=== PATIENT | male | born 1950 | race Caucasian/White ===

== ENCOUNTER 2016-08-17 14:22 | Emergency (ER) | payer MEDICARE, OTHER ==
--- NOTE | 2016-08-17 14:36 | ED.PDOC ---
History of Present Illness - General Stated Complaint: dizzy,tunnel vision,headache Time Seen by Provider: 08/17/16 14:36 Source: patient Exam Limitations: no limitations - History of Present Illness Initial Comments: Rowdy Knight 65 y/o male with history of brain and pancreatic aneurysm stated while he was standing outside his shop today he became dizzy with tunnel vision felt nauseated feels like he was spinning around then had dull generalized headache which gradually went away on its own.Denies tinnitus hearing loss ,slurred speech,or weakness.He also stated that he had to kneel down to keep himself from falling. Timing/Duration: 1-3 hours Severity: moderate Improving Factors: rest Worsening Factors: nothing Associated Symptoms: denies symptoms Allergies/Adverse Reactions: Allergies NO KNOWN ALLERGY Allergy (Verified 12/09/15 19:09) Home Medications: Ambulatory Orders Metoprolol Tartrate 50 mg PO BID 12/19/14 Trazodone HCl 100 mg PO BEDTIME 12/19/14 amLODIPine BESYLATE [Norvasc] 10 mg PO DAILY 05/09/15 Clopidogrel Bisulfate [Plavix] 75 mg PO QD 08/17/16 Duloxetine HCl [Cymbalta] 60 mg PO DAILY 08/17/16 Meclizine HCl [Meclizine 25] 50 mg PO Q8HRS PRN #30 tab 08/17/16 Review of Systems - Review of Systems Constitutional: States: no symptoms reported EENTM: States: no symptoms reported Respiratory: States: no symptoms reported Cardiology: States: no symptoms reported Gastrointestinal/Abdominal: States: no symptoms reported Genitourinary: States: no symptoms reported Musculoskeletal: States: no symptoms reported Neurological: States: see HPI Endocrine: States: no symptoms reported Hematologic/Lymphatic: States: no symptoms reported Past Medical History (General) - Patient Medical History Hx Seizures: No - 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 Hx Stroke: No - brain aneurysms, clipped Hx Dementia: No Hx Asthma: No - always short of breath Hx of COPD: No Hx Cardiac Disorders: Yes Hx Congestive Heart Failure: No Hx Pacemaker: No Hx Hypertension: Yes Hx Thyroid Disease: No Hx Diabetes: No Hx Gastroesophageal Reflux: Yes Hx Renal Disease: No Hx Cancer: No Hx Hepatitis C: No Hx MRSA: No Hx Other PMH: Yes - brain aneurysm,pancreatic aneurysm,dvt,pe Surgical History: appendectomy, cholecystectomy, other - coiling of brain, pancreatic aneurysm-[facility] 2014,removal of ivc filter - Vaccination History Hx Tetanus, Diphtheria Vaccination: Yes Hx Influenza Vaccination: No Hx Pneumococcal Vaccination: No - Social History Hx Tobacco Use: No Hx Chewing Tobacco Use: Yes - october 2014 Hx Alcohol Use: Yes - 35 yrs ago Hx Substance Use: No Hx Substance Use Treatment: No Hx Depression: No Hx Physical Abuse: No Hx Emotional Abuse: No - Female History Patient : No Family Medical History - Family History Father Living Status: Hx Family Hypertension: Yes Hx Cardiac Disease: Yes Hx Family Cancer: Yes - stomach Mother Living Status: Hx Family Hypertension: Yes Hx Family;Other: Alzheimer's disease Physical Exam - Physical Exam General Appearance: Alert, No apparent distress, Other - speech fluent Eye Exam: bilateral normal Ears, Nose, Throat: hearing grossly normal, normal ENT inspection, normal pharynx Neck: non-tender, full range of motion, supple, normal inspection Respiratory: chest non-tender, lungs clear, normal breath sounds Cardiovascular/Chest: normal peripheral pulses, regular rate, rhythm, no gallop , no murmur Peripheral Pulses: radial,right: 2+, radial,left: 2+ Gastrointestinal/Abdominal: normal bowel sounds, non tender, soft, no organomegaly, no pulsatile mass Back Exam: normal inspection, no CVA tenderness, no vertebral tenderness Extremity: normal range of motion, non-tender, normal inspection, no pedal edema Neurologic: no motor/sensory deficits, alert, normal mood/affect, oriented x 3 Skin Exam: normal color, warm/dry Lymphatic: no adenopathy Progress - EKG/XRAY/CT EKG: Sinus, nonspecific ST T wave Chg - lead 3 XRAY: chest - no acute abnormalities noted CT Ordered: Yes - head w/o contrast no acute findings Departure - Departure Clinical Impression: Dizziness, Headache syndrome Time of Disposition: 16:52 Disposition: Discharge to Home or Self Care Condition: Good Instructions: DI for Dizziness-Nonvertigo, Combating Dizziness in Older Adults Prescriptions: Meclizine HCl [Meclizine 25] 50 mg PO Q8HRS PRN #30 tab PRN Reason: Dizziness Home Medications: Ambulatory Orders Metoprolol Tartrate 50 mg PO BID 12/19/14 Trazodone HCl 100 mg PO BEDTIME 12/19/14 amLODIPine BESYLATE [Norvasc] 10 mg PO DAILY 05/09/15 Clopidogrel Bisulfate [Plavix] 75 mg PO QD 08/17/16 Duloxetine HCl [Cymbalta] 60 mg PO DAILY 08/17/16 Meclizine HCl [Meclizine 25] 50 mg PO Q8HRS PRN #30 tab 08/17/16 Additional Instructions: RETURN TO EMERGENCY ROOM NEEDED
[2016-08-17 14:42] VITALS: TEMP 96.9
--- NOTE | 2016-08-17 15:27 | RAD ---
Portable chest INDICATION: Chest pain IMPRESSION: Normal heart size for technique. No florid failure. No confluent infiltrate. No large effusion or pneumothorax. No acute process Electronically signed by: Bernardo Lowry MD 08/17/2016 3:25 PM ASSOCIATE FINANCIAL PLANNER
[2016-08-17] MEDS ORDERED: SODIUM CHLORIDE 0.9% 1000ML 1,000 ML IVS ONE (15:43)
--- NOTE | 2016-08-17 15:54 | CT ---
EXAM DESCRIPTION: Head CLINICAL HISTORY: headache COMPARISON: February 02, 2016 TECHNIQUE: Multiple axial images of the head without contrast FINDINGS: There is no CT evidence of intracranial hemorrhage, mass effect, or acute cortical infarction. Minimal encephalomalacia superjacent to the right ICA aneurysm clip within the region of the caudate head. The brain parenchyma is otherwise unremarkable. The ventricles are normal. There are no abnormal extra-axial fluid collections. Vascular structures are unremarkable. Right frontoparietal craniotomy noted. Aneurysm clips seen about the ophthalmic segment of right internal carotid artery. The visualized paranasal sinuses and the mastoids are clear. IMPRESSION: 1. No acute findings on today's study. 2. Right internal carotid artery aneurysm clip is noted. Electronically signed by: Loyd Palacios MD 08/17/2016 3:53 PM ASSISTANT PRODUCT MANAGER
[2016-08-17 17:12] VITALS: BP 148/100; O2SAT 93
--- NOTE | 2016-08-21 00:47 | RAD ---
Portable chest INDICATION: Chest pain IMPRESSION: Normal heart size for technique. No florid failure. No confluent infiltrate. No large effusion or pneumothorax. No acute process Electronically signed by: Bernardo Lowry MD 08/17/2016 3:25 PM COLD ROLL CATCHER
== END 2016-08-17 17:12 | disposition home or self-care (01) ==
LOC: ER 14:22
DX: R42 Dizziness and giddiness (principal); R51 Headache; I10 Essential (primary) hypertension; K21.9 Gastro-esophageal reflux disease without esophagitis; Z79.899 Other long term (current) drug therapy; Z86.718 Personal history of other venous thrombosis and embolism; Z86.711 Personal history of pulmonary embolism; Z87.19 Personal history of other diseases of the digestive system; Z86.79 Personal history of other diseases of the circulatory system; Z79.02 Long term (current) use of antithrombotics/antiplatelets
CPT/HCPCS: 36415; 70450; 71010; 80048; 80076; 82310; 82550; 82553; 83735; 84484; 85025; 85379; 85610; 85730; 93005; J7030

== ENCOUNTER → 2017-01-26 | Outpatient (CLI) | payer MEDICARE, OTHER | END | disposition home or self-care (01) | LOC: LAB.O 07:48 | DX: E27.49 Other adrenocortical insufficiency (principal) ==

== ENCOUNTER → 2017-02-05 | Outpatient (CLI) | payer MEDICARE, OTHER | END | disposition home or self-care (01) | LOC: GMAB 10:14 | PROVIDERS: ATTEND Family Medicine | DX: R06.00 Dyspnea, unspecified (principal); Z12.5 Encounter for screening for malignant neoplasm of prostate; I10 Essential (primary) hypertension | CPT/HCPCS: 83880; 84443; G0103 ==

== ENCOUNTER → 2017-02-15 | Outpatient (CLI) | payer MEDICARE, OTHER | END | disposition home or self-care (01) | LOC: LAB.O 08:08 | DX: E27.40 Unspecified adrenocortical insufficiency (principal) ==

== ENCOUNTER 2017-03-01 12:16 | Emergency (ER) | payer MEDICARE, OTHER ==
[2017-03-01 12:33] VITALS: TEMP 97.6
[2017-03-01] MEDS ORDERED: LACTATED RINGERS 1,000 ML IVS ONE (12:41)
--- NOTE | 2017-03-01 12:42 | ED.PDOC ---
History of Present Illness - General Chief Complaint: General Stated Complaint: feels like his head is floating Time Seen by Provider: 03/01/17 12:39 Source: patient Exam Limitations: no limitations - History of Present Illness Initial Comments: Rowdy Knight 66 y/o male stated that he had been feeling lightheaded and getting more somnolent easily the last 4 weeks on ad off today fell asleep easily while sitting in his sofa and his needs to tap his foot also had been having dull headache on top of hi head today which was almost gone on arrival at ER.Stated had repair of brain aneurysm inthe past and had also his ivc filter taken out Timing/Duration: other - 4 weeks Severity: moderate Improving Factors: nothing Worsening Factors: nothing Associated Symptoms: other - see hpi Allergies/Adverse Reactions: Allergies NO KNOWN ALLERGY Allergy (Verified 12/09/15 19:09) Home Medications: Ambulatory Orders RX: Metoprolol Tartrate 50 mg PO BID 12/19/14 RX: Trazodone HCl 100 mg PO BEDTIME 12/19/14 amLODIPine BESYLATE [Norvasc] 10 mg PO DAILY 05/09/15 ALPRAZolam [Xanax] 0.25 mg PO DAILY 08/17/16 Clopidogrel Bisulfate [Plavix] 75 mg PO QD 08/17/16 Duloxetine HCl [Cymbalta] 60 mg PO DAILY 08/17/16 Meclizine HCl [Meclizine 25] 50 mg PO Q8HRS PRN #30 tab 08/17/16 RX: Prednisone 5 mg PO DAILY 08/17/16 Review of Systems - Review of Systems Constitutional: States: other - weight gain EENTM: States: no symptoms reported Respiratory: States: no symptoms reported Cardiology: States: no symptoms reported Gastrointestinal/Abdominal: States: no symptoms reported Genitourinary: States: no symptoms reported Musculoskeletal: States: no symptoms reported Skin: States: no symptoms reported Neurological: States: no symptoms reported Endocrine: States: other - hx of adrenal insufficiency-result of brain surgery in the past Past Medical History (General) - Patient Medical History Hx Seizures: No - 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 Hx Stroke: No - brain aneurysms, clipped Hx Dementia: No Hx Asthma: No - always short of breath Hx of COPD: Yes Hx Cardiac Disorders: Yes Hx Congestive Heart Failure: No Hx Pacemaker: No Hx Hypertension: Yes Hx Thyroid Disease: No Hx Diabetes: Yes Hx Gastroesophageal Reflux: Yes Hx Renal Disease: No Hx Cancer: No Hx Hepatitis C: No Hx MRSA: No Hx Other PMH: Yes - adrenal insufficiency ,LAWANDA ,post op-PE/DVT Surgical History: appendectomy, cholecystectomy, other - 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,craniotomy - Vaccination History Hx Tetanus, Diphtheria Vaccination: Yes Hx Influenza Vaccination: No Hx Pneumococcal Vaccination: No - Social History Hx Tobacco Use: No Hx Chewing Tobacco Use: Yes Hx Alcohol Use: Yes - 35 yrs ago Hx Substance Use: No Hx Substance Use Treatment: No Hx Depression: No Hx Physical Abuse: No Hx Emotional Abuse: No - Activities of Daily Living Grooming Ability: Independent Eating (Feeding) Ability: Independent Toileting Ability: Independent - Female History Patient : No Family Medical History - Family History Father Living Status: Hx Family Hypertension: Yes Hx Cardiac Disease: Yes Hx Family Diabetes: Yes Hx Family Cancer: Yes - stomach Mother Living Status: Hx Family Hypertension: Yes Hx Family;Other: Alzheimer's disease Physical Exam - Physical Exam General Appearance: Alert, No apparent distress, Other - speech fluent Eye Exam: bilateral normal Ears, Nose, Throat: hearing grossly normal, normal ENT inspection Neck: full range of motion, supple Respiratory: lungs clear, normal breath sounds Cardiovascular/Chest: normal peripheral pulses, regular rate, rhythm, no murmur Peripheral Pulses: radial,right: 1+, radial,left: 1+ Gastrointestinal/Abdominal: normal bowel sounds, non tender, soft, no organomegaly Back Exam: normal inspection, no CVA tenderness, no vertebral tenderness Extremity: non-tender, normal inspection, no pedal edema, no calf tenderness Neurologic: no motor/sensory deficits, alert, normal mood/affect, oriented x 3 Skin Exam: normal color, warm/dry Lymphatic: no adenopathy Progress - Progress Progress: 03/01/17 14:22 Vital Signs - 24 hr 03/01/17 03/01/17 12:28 13:51 Temperature 97.6 F Pulse Rate [ 80 90 Left Brachial] Respiratory 20 Rate Blood Pressure 104/72 140/79 [Left Arm] O2 Sat by Pulse 92 L Oximetry - Results/Orders Results/Orders: Laboratory Tests 03/01/17 03/01/17 03/01/17 12:50 12:50 12:50 WBC 6.0 RBC 4.75 Hgb 14.2 Hct 41.8 L MCV 88.1 MCH 29.9 MCHC 33.9 RDW 13.6 Plt Count 254 MPV 7.6 Absolute Neuts (auto) 3.50 Absolute Lymphs (auto) 1.70 Absolute Monos (auto) 0.50 Absolute Eos (auto) 0.30 Absolute Basos (auto) 0.10 Neutrophils % 58.0 Lymphocytes % 27.9 Monocytes % 8.7 Eosinophils % 4.4 Basophils % 1.0 Sodium 137 Potassium 3.7 Chloride 102 Carbon Dioxide 28 Anion Gap 10.7 L BUN 12 Creatinine 1.12 BUN/Creatinine Ratio 10.7 Random Glucose 151 H Serum Osmolality 276.5 Calcium 8.9 Total Bilirubin 0.7 AST 60 H ALT 63 H Alkaline Phosphatase 50 Troponin I < 0.02 B-Natriuretic Peptide Serum Total Protein 7.4 Albumin 4.1 Globulin 3.3 Albumin/Globulin Ratio 1.2 Urine Color Urine Appearance Urine pH Ur Specific [place] Urine Protein Urine Glucose (UA) Urine Ketones Urine Blood Urine Nitrite Urine Bilirubin Urine Urobilinogen Ur Leukocyte Esterase Urine RBC Urine WBC Ur Epithelial Cells Amorphous Sediment Urine Bacteria Urine Mucus Urine Opiates Screen Urine Barbiturates Ur Phencyclidine Scrn U Amphetamin/Meth Scrn U Benzodiazepines Scrn U Cocaine Metab Screen U Cannabinoids Screen 03/01/17 03/01/17 03/01/17 13:50 13:50 14:20 WBC RBC Hgb Hct MCV MCH MCHC RDW Plt Count MPV Absolute Neuts (auto) Absolute Lymphs (auto) Absolute Monos (auto) Absolute Eos (auto) Absolute Basos (auto) Neutrophils % Lymphocytes % Monocytes % Eosinophils % Basophils % Sodium Potassium Chloride Carbon Dioxide Anion Gap BUN Creatinine BUN/Creatinine Ratio Random Glucose Serum Osmolality Calcium Total Bilirubin AST ALT Alkaline Phosphatase Troponin I B-Natriuretic Peptide 20.1 Serum Total Protein Albumin Globulin Albumin/Globulin Ratio Urine Color Yellow Urine Appearance Clear Urine pH 8.5 H Ur Specific [place] 1.020 Urine Protein 100 H Urine Glucose (UA) Negative Urine Ketones Negative Urine Blood Trace-intact H Urine Nitrite Negative Urine Bilirubin Negative Urine Urobilinogen 0.2 Ur Leukocyte Esterase Negative Urine RBC 0-1 Urine WBC 0-1 Ur Epithelial Cells 1-3 Amorphous Sediment 2+ Urine Bacteria Rare Urine Mucus Small Urine Opiates Screen Negative Urine Barbiturates Negative Ur Phencyclidine Scrn Negative U Amphetamin/Meth Scrn Negative U Benzodiazepines Scrn Positive H U Cocaine Metab Screen Negative U Cannabinoids Screen Negative - EKG/XRAY/CT EKG: Sinus, no ST T wave changes Comments: heart rate 66 XRAY: chest - no acute findings CT Ordered: Yes - head -no hemmorrhage or infarct Departure - Departure Clinical Impression: Lightheadedness, Excessive somnolence disorder Headache Qualifiers: Headache type: unspecified Headache chronicity pattern: unspecified pattern Intractability: not intractable Qualified Code(s): R51 - Headache Time of Disposition: 15:13 Disposition: Discharge to Home or Self Care Departure Forms: ED Discharge - Pt. Copy, Patient Portal Self Enrollment Referrals: Josué Gutierrez MD [Primary Care Provider] - 1-2 Weeks Home Medications: Ambulatory Orders RX: Metoprolol Tartrate 50 mg PO BID 12/19/14 RX: Trazodone HCl 100 mg PO BEDTIME 12/19/14 amLODIPine BESYLATE [Norvasc] 10 mg PO DAILY 05/09/15 ALPRAZolam [Xanax] 0.25 mg PO DAILY 08/17/16 Clopidogrel Bisulfate [Plavix] 75 mg PO QD 08/17/16 Duloxetine HCl [Cymbalta] 60 mg PO DAILY 08/17/16 Meclizine HCl [Meclizine 25] 50 mg PO Q8HRS PRN #30 tab 08/17/16 RX: Prednisone 5 mg PO DAILY 08/17/16 Additional Instructions: RETURN TO EMERGENCY ROOM NEEDED;FOLLOW UP WITH PRIMARY MD call for appoint ment
--- NOTE | 2017-03-01 13:13 | RAD ---
Chest two views INDICATION: Weakness IMPRESSION: Normal heart size. No failure or lobar consolidation. No mass. No acute chest process Electronically signed by: Bernardo Lowry MD 03/01/2017 1:11 PM CDT
--- NOTE | 2017-03-01 15:02 | CT ---
EXAM DESCRIPTION: Head CLINICAL HISTORY: 66 years, Male, headache-hx of aneurysm brain COMPARISON: August 17 FINDINGS: Unenhanced images through the brain. This examination was performed according to our departmental dose optimization program, which includes automatic exposure control, adjustment of the MA and/or kV according to the patient size and/or use of iterative reconstruction technique. No change in appearance of ventricles and sulci. No definite intracranial hemorrhage or mass. Right frontal parietal craniotomy. Surgical clip in the area of the right internal carotid artery near the expected origin of the ophthalmic artery. Some stable appearing trace linear high attenuation adjacent to the inner table right frontal region mid convexity. This may represent some calcification in the area of the craniotomy. In any case this is stable compared to July and no significant mass effect. IMPRESSION: No acute abnormality. No change compared to August 17. Stable post aneurysm repair right internal carotid artery. No findings of acute hemorrhage or mass Electronically signed by: Rainer Alvarez MD 03/01/2017 3:01 PM CDT
[2017-03-01 15:52] VITALS: BP 138/99; O2SAT 94
== END 2017-03-01 15:52 | disposition home or self-care (01) ==
LOC: ER 12:16
DX: R42 Dizziness and giddiness (principal); R40.0 Somnolence; R51 Headache; J44.9 Chronic obstructive pulmonary disease, unspecified; I10 Essential (primary) hypertension; E11.9 Type 2 diabetes mellitus without complications; Z98.890 Other specified postprocedural states
CPT/HCPCS: 36415; 70450; 71020; 80053; 80307; 81001; 83880; 84484; 85025; 93005; 93225; J7120

== ENCOUNTER → 2017-03-09 | Outpatient (CLI) | payer MEDICARE, OTHER | LOC: LAB.O 08:43 | PROVIDERS: ATTEND Internal Medicine Endocrinology, Diabetes & Metabolism | DX: E27.40 Unspecified adrenocortical insufficiency (principal) ==

== ENCOUNTER 2017-05-26 12:46 | Emergency (ER) | payer MEDICARE, OTHER ==
[2017-05-26 13:14] VITALS: TEMP 97.7
--- NOTE | 2017-05-26 13:52 | ED.PDOC ---
History of Present Illness - General Chief Complaint: General Stated Complaint: dizziness,tunnel vision Time Seen by Provider: 05/26/17 13:25 Source: patient, family Exam Limitations: no limitations Additional Information: ABRUPT ONSET OF LIGHTHEADEDNESS AND TUNNEL VISION. WAS SIMILAR TO ANEURYSM SX' S. PT HAS HAD MULTIPLE EPISODES DURING THE PAST BUT THIS WAS WORSE. THE TUNNEL VISION IS NOT PART OF HIS USUAL EPISODES. 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 Severity: moderate Improving Factors: other - SPONTANEOUS Worsening Factors: nothing Associated Symptoms: denies symptoms Allergies/Adverse Reactions: Allergies NO KNOWN ALLERGY Allergy (Verified 12/09/15 19:09) Home Medications: Ambulatory Orders Metoprolol Tartrate 50 mg PO BID 12/19/14 Trazodone HCl 100 mg PO BEDTIME 12/19/14 amLODIPine BESYLATE [Norvasc] 10 mg PO DAILY 05/09/15 ALPRAZolam [Xanax] 0.25 mg PO DAILY 08/17/16 Clopidogrel Bisulfate [Plavix] 75 mg PO QD 08/17/16 Duloxetine HCl [Cymbalta] 60 mg PO DAILY 08/17/16 Meclizine HCl [Meclizine 25] 50 mg PO Q8HRS PRN #30 tab 08/17/16 Prednisone 5 mg PO DAILY 08/17/16 Review of Systems - Review of Systems Constitutional: Denies: chills, fever EENTM: States: other - NO SINUS SX'S. Denies: eye pain, blurred vision, ear pain, throat pain Respiratory: Denies: cough, short of breath Cardiology: Denies: chest pain, palpitations, syncope - HAS HAD SYNCOPE IN PAST THOUGH Gastrointestinal/Abdominal: Denies: abdominal pain, nausea, vomiting Genitourinary: States: no symptoms reported Musculoskeletal: States: other - STABLE LE EDEMA. Denies: back pain, neck pain Skin: States: no symptoms reported Neurological: Denies: numbness, seizure - DID HAVE SZ WITH PREVIOUS BLEED, weakness Endocrine: States: no symptoms reported Hematologic/Lymphatic: States: blood clots - PE IN PAST Past Medical History (General) - Patient Medical History Hx Seizures: No - 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 Hx Stroke: No - brain aneurysms, clipped Hx Dementia: No Hx Asthma: No - always short of breath Hx of COPD: Yes Hx Cardiac Disorders: Yes Hx Congestive Heart Failure: No Hx Pacemaker: No Hx Hypertension: Yes Hx Thyroid Disease: No Hx Diabetes: Yes Hx Gastroesophageal Reflux: Yes Hx Renal Disease: No Hx Cancer: No Hx Hepatitis C: No Hx MRSA: No Surgical History: appendectomy, cholecystectomy - Vaccination History Hx Tetanus, Diphtheria Vaccination: Yes Hx Influenza Vaccination: No Hx Pneumococcal Vaccination: No - Social History Hx Tobacco Use: No Hx Chewing Tobacco Use: Yes Hx Alcohol Use: Yes - 35 yrs ago Hx Substance Use: No Hx Substance Use Treatment: No Hx Depression: No Hx Physical Abuse: No Hx Emotional Abuse: No - Female History Patient : No Family Medical History - Family History Father Living Status: Hx Family Hypertension: Yes Hx Cardiac Disease: Yes Hx Family Diabetes: Yes Hx Family Cancer: Yes - stomach Mother Living Status: Hx Family Hypertension: Yes Hx Family;Other: Alzheimer's disease Physical Exam - Physical Exam General Appearance: Alert, No apparent distress, Obese Eye Exam: bilateral normal Ears, Nose, Throat: hearing grossly normal, normal ENT inspection, normal pharynx Neck: non-tender, full range of motion, supple Respiratory: lungs clear, normal breath sounds, no respiratory distress Cardiovascular/Chest: regular rate, rhythm, no murmur Gastrointestinal/Abdominal: normal bowel sounds, non tender, soft, no organomegaly Extremity: normal range of motion Neurologic: no motor/sensory deficits, alert, normal mood/affect, abnormal consulting sales executive II-XII Skin Exam: normal color, warm/dry Lymphatic: no adenopathy Progress - Progress Progress: 05/26/17 15:38 FEELS BETTER, SX'S RESOLVED. PT'S BP NORMALLY TRENDS HIGHER THAN 104S MAY BE INDUCED BY BP. HAVE ADVISED PT TO CHECK HIS BP AT HOME WHEN HE BECOMES DIZZY. - EKG/XRAY/CT EKG: Sinus - RATE 79, NL AXIS, NL INTERVALS, , nonspecific ST T wave Chg - NAIP , OLD INF WALL VA, Unchanged from - 03/01/2017 Departure - Departure Clinical Impression: Dizziness, nonspecific Hypertension Qualifiers: Hypertension type: essential hypertension Qualified Code(s): I10 - Essential ( primary) hypertension Time of Disposition: 15:40 Disposition: Discharge to Home or Self Care Condition: Good Departure Forms: ED Discharge - Pt. Copy, Patient Portal Self Enrollment Instructions: DI for Dizziness-Nonvertigo Referrals: Josué Gutierrez MD [Primary Care Provider] - 1-2 Weeks Home Medications: Ambulatory Orders Metoprolol Tartrate 50 mg PO BID 12/19/14 Trazodone HCl 100 mg PO BEDTIME 12/19/14 amLODIPine BESYLATE [Norvasc] 10 mg PO DAILY 05/09/15 ALPRAZolam [Xanax] 0.25 mg PO DAILY 08/17/16 Clopidogrel Bisulfate [Plavix] 75 mg PO QD 08/17/16 Duloxetine HCl [Cymbalta] 60 mg PO DAILY 08/17/16 Meclizine HCl [Meclizine 25] 50 mg PO Q8HRS PRN #30 tab 08/17/16 Prednisone 5 mg PO DAILY 08/17/16
--- NOTE | 2017-05-26 14:25 | CT ---
PROCEDURE: Head HISTORY: DIZZINESS, TUNNEL VISION, HX ANEURYSM Indication: Same as above Comparison: 03/01/2017 Technique: CT of the head was done without intravenous contrast was done in the orthogonal planes. This exam was performed according to our departmental dose-optimization program, which includes automated exposure control, adjustment of the mA and/or KV according to the patient's size and/or use of iterative reconstruction technique. FINDINGS: There is no intracranial hemorrhage, midline shift mass effect or acute focal infarct. Note is again made of an aneurysmal clip in the perisellar region . Note is again made of a right frontal craniotomy If clinical concern exists regarding an acute ischemic/vascular pathology being responsible for patient's symptomatology, an MRI of the brain is more sensitive than the current study, in ruling out such a possibility. There is good hidalgo/white matter differentiation. The ventricular system is normal. The mastoid air cells are unremarkable . The paranasal sinuses are unremarkable . There is no visualization of acute fractures involving the calvarium or the skull base. IMPRESSION: There is no acute intracranial abnormality. Electronically signed by: Stew Alexandre MD 05/26/2017 2:24 PM [facility] Workstation: [id number]
[2017-05-26 14:32] VITALS: BP 133/70
[2017-05-26 15:51] VITALS: O2SAT 95
== END 2017-05-26 15:50 | disposition home or self-care (01) ==
LOC: ER 12:46
DX: I10 Essential (primary) hypertension (principal); R42 Dizziness and giddiness; J44.9 Chronic obstructive pulmonary disease, unspecified; E11.9 Type 2 diabetes mellitus without complications; K21.9 Gastro-esophageal reflux disease without esophagitis; Z86.69 Personal history of other diseases of the nervous system and sense organs

== ENCOUNTER → 2017-05-30 | Outpatient (CLI) | payer MEDICARE, OTHER | END | disposition home or self-care (01) | LOC: GMAB 10:31 | PROVIDERS: ATTEND Family Medicine | DX: I11.0 Hypertensive heart disease with heart failure (principal); I50.40 Unspecified combined systolic (congestive) and diastolic (congestive) heart failure; E27.8 Other specified disorders of adrenal gland; I10 Essential (primary) hypertension; E11.9 Type 2 diabetes mellitus without complications ==

== ENCOUNTER → 2017-06-29 | Outpatient (CLI) | payer MEDICARE, OTHER ==
--- NOTE | 2017-06-29 17:54 | CT ---
EXAM DESCRIPTION: Chest w/o Contrast CT. CLINICAL HISTORY: COPD,NODULES COMPARISON: CT scan of the chest without contrast 05/15/2016. TECHNIQUE: Spiral-axial scans at 5.0 mm intervals through the lungs and thorax without IV contrast. 2.5 mm lung algorithm axial reconstructions. Coronal and sagittal 2.0 Mm reconstructions. Total Exam DLP: 804.59 mGy-cm. This exam was performed according to our departmental dose-optimization program which includes automated exposure control, adjustment of the mA and/or kV according to patient size and/or use of iterative reconstruction technique; to reduce radiation dose to as low as reasonably achievable (ALARA). FINDINGS: 3 mm nodule stable in the inferior lateral subpleural left upper lobe (series 4, image 39) stable fissural 3.5 mm nodule between the left upper lobe and lower lobes (image 59) stable calcified nodule abutting the major fissure in the right lower lobe (image 64) and 2 stable calcified nodules in the upper middle lobe abutting the horizontal fissure (image 65). Stable 3.5 mm nodule in the right lower lobe ( image 74). 4.7 mm nodule subpleural lateral left lower lobe incompletely visualized on the prior study (image 91). 2 mm subpleural calcified nodule subpleural lateral right lower lobe (image 90). 2.5 mm subpleural soft tissue nodule lateral left lower lobe (image 87). 2 mm nodule abutting the major fissure in the left lower lobe on image 72 and subpleural soft tissue nodule abutting the posterior lateral pleura left lower lobe on image 68. At the same level 2 mm nodule abutting the lingular fissure laterally. Bibasilar scarring bilaterally. The nonspecific pulmonary densities may be related to clinical history COPD. No pleural effusion or pneumothorax. Multiple calcifications abutting the aortic root with possible valvular device. Coronary artery stents/calcifications. No large soft tissue masses in the mediastinum hilum or thyroid gland. Sensitivity decreased due to lack of IV contrast. No axillary lymph nodes that are enlarged. Subdiaphragmatic peritoneal space is unremarkable. Normal size and density of the spleen. A metallic medical practitioners is visualized in the midline anterior to the aorta abutting SMA stent. Spondylosis in the thoracic spine. IMPRESSION: 1. Multiple bilateral soft tissue and calcified pulmonary nodules. Some these nodules are more clearly seen compared to the prior study due to dedicated lung window technique with thinner slices. Nodule enlarges cross section was 4.7 mm. [facility] Best Practice recommendations based upon 2017 Fleischner Society recommendations for multiple solid lung nodules: Consider 6-[address] follow-up. Please see below.* 2. Remainder the study is unremarkable. *2017 Fleischner Society Recommendations for Multiple Solid Lung Nodules Follow-Up base on size (average of long- and short-axis diameters). Use most suspicious nodule for followup. Nodule Size <6 mm Low-Risk Patient: No routine follow-up Nodule Size <6 mm High-Risk Patient: Optional CT at 12 months Nodule Size 6-8 mm Low-Risk Patient: CT at 3-[address] at 18-24 months Nodule Size 6-8 mm High-Risk Patient: CT at 3-6 months then at 18-24 months Nodule Size (mm) >8 Low-Risk Patient: CT at 3-6 months, then consider CT at 18-24 months Nodule Size (mm) >8 High-Risk Patient: CT at 3-6 months, then at 18-24 months Electronically signed by: Julio Song MD 06/29/2017 5:53 PM [facility]
== END | disposition home or self-care (01) ==
LOC: CT 08:00
PROVIDERS: ATTEND Internal Medicine
DX: J44.9 Chronic obstructive pulmonary disease, unspecified (principal); J98.4 Other disorders of lung

== ENCOUNTER 2017-07-17 21:49 | Emergency (ER) | payer MEDICARE, OTHER ==
[2017-07-17 22:44] VITALS: TEMP 98
--- NOTE | 2017-07-17 22:51 | ED.PDOC ---
History of Present Illness - General Chief Complaint: Blood Pressure Problem Stated Complaint: low blood pressure Time Seen by Provider: 07/17/17 22:00 Source: patient, family Exam Limitations: no limitations - History of Present Illness Initial Comments: HE WAS AT HOME AND SUDDENLY AND FELT WEAK. HE TOOK HIS BP AND WAS 70/50 AND NOTED THAT HIS VISION WAS FOGGY AND TUNNELED. . THE SAID THAT HE WAS CONFUSED AND HIS SPEECH WAS SLURRED. HE HAS A HISTORY OF RUPTURED CEREBRAL ANEURYSM AND ELECTED TO COME TO THE ED. HE WAS RECENTLY STARTED ON NEURONTIN FOR ABDOMINAL PAIN Timing/Duration: 1-3 hours Severity: moderate Activities at Onset: none Improving Factors: nothing Worsening Factors: nothing Aspirin Treatment Today: no aspirin today Allergies/Adverse Reactions: Allergies NO KNOWN ALLERGY Allergy (Verified 12/09/15 19:09) Home Medications: Ambulatory Orders Metoprolol Tartrate 50 mg PO BID 12/19/14 Trazodone HCl 100 mg PO BEDTIME 12/19/14 amLODIPine BESYLATE [Norvasc] 10 mg PO DAILY 05/09/15 ALPRAZolam [Xanax] 0.25 mg PO DAILY 08/17/16 Clopidogrel Bisulfate [Plavix] 75 mg PO QD 08/17/16 Duloxetine HCl [Cymbalta] 60 mg PO DAILY 08/17/16 Meclizine HCl [Meclizine 25] 50 mg PO Q8HRS PRN #30 tab 08/17/16 Prednisone 5 mg PO DAILY 08/17/16 Review of Systems - Review of Systems Constitutional: States: no symptoms reported EENTM: States: blurred vision, double vision Respiratory: States: no symptoms reported Cardiology: States: no symptoms reported Gastrointestinal/Abdominal: States: no symptoms reported Musculoskeletal: States: no symptoms reported Skin: States: no symptoms reported Neurological: States: no symptoms reported Endocrine: States: no symptoms reported Hematologic/Lymphatic: States: no symptoms reported Past Medical History (General) - Patient Medical History Hx Seizures: No Hx Stroke: No Hx Dementia: No Hx Asthma: No Hx of COPD: Yes Hx Cardiac Disorders: No Hx Congestive Heart Failure: No Hx Pacemaker: No Hx Hypertension: Yes Hx Thyroid Disease: Yes Hx Diabetes: No Hx Gastroesophageal Reflux: No Hx Renal Disease: No Hx Cancer: No Hx of HIV: No Hx Hepatitis C: No Hx MRSA: No Surgical History: other - Vaccination History Hx Tetanus, Diphtheria Vaccination: No Hx Influenza Vaccination: No Hx Pneumococcal Vaccination: No - Social History Hx Tobacco Use: No Hx Chewing Tobacco Use: Yes Hx Alcohol Use: No Hx Substance Use: No Hx Substance Use Treatment: No Hx Depression: No Hx Physical Abuse: No Hx Emotional Abuse: No - Female History Patient : No - Triage Comment ED Triage Comment: Presents ro ED--from home--POV--c/o weakness at home----- dizzy--on new pill of Neurotin --c/o blurred vision also. States feels better now. Family Medical History - Family History Father Living Status: Hx Family Hypertension: Yes Hx Cardiac Disease: Yes Hx Family Diabetes: Yes Hx Family Cancer: Yes - stomach Mother Living Status: Hx Family Hypertension: Yes Hx Family;Other: Alzheimer's disease Physical Exam - Physical Exam General Appearance: Alert, Anxious, Well Developed, Well Groomed, Well Hydrated , Well Nourished Eyes, Ears, Nose, Throat Exam: PERRL/EOMI, normal ENT inspection, pharynx normal Neck: non-tender, full range of motion, supple, normal inspection Respiratory: chest non-tender, lungs clear, normal breath sounds, no respiratory distress, no accessory muscle use Cardiovascular/Chest: normal peripheral pulses, regular rate, rhythm, no edema, no gallop, no JVD, no murmur Peripheral Pulses: radial,right: 2+, radial,left: 2+ Gastrointestinal/Abdominal: normal bowel sounds, non tender, soft, no organomegaly, no pulsatile mass Rectal Exam: deferred Extremity: pedal edema - BILATERALLY, 1 + Neurologic: no motor/sensory deficits, alert, normal mood/affect, oriented x 3 Skin Exam: normal color, warm/dry Progress - Results/Orders Results/Orders: EKG INTERPRETATION: HR OF 110, MO INTERVAL OF 196, QRS OF 70, QTC OF 657, AXIS OF -12 DEGREES.IMPRESSION: SINUS TACHYCARDIA. THERE ARE PREVIOUS TRACINGS TO COMPARE WITH. THE LAB AND IMAGING AR REPORTED. CT OF THE HEAD W/O ANY ACUTE PROCESS. THE TILT WAS NEGATIVE AND THE CBC AND CMP ARE NORMAL WELL. THE PATIENT IS REASSESSED: AT THIS TIME HE IS ASYMPTOMATIC. WANTS TO GO HOME. WILL DC - EKG/XRAY/CT CT Ordered: Yes Departure - Departure Clinical Impression: Essential hypertension Disposition: Discharge to Home or Self Care Condition: Good Departure Forms: ED Discharge - Pt. Copy, Patient Portal Self Enrollment Instructions: DI for High Blood Pressure Diet: resume usual diet Activity: increase activity as tolerated Referrals: Josué Gutierrez MD [Primary Care Provider] - 1-2 Weeks Home Medications: Ambulatory Orders Metoprolol Tartrate 50 mg PO BID 12/19/14 Trazodone HCl 100 mg PO BEDTIME 12/19/14 amLODIPine BESYLATE [Norvasc] 10 mg PO DAILY 05/09/15 ALPRAZolam [Xanax] 0.25 mg PO DAILY 08/17/16 Clopidogrel Bisulfate [Plavix] 75 mg PO QD 08/17/16 Duloxetine HCl [Cymbalta] 60 mg PO DAILY 08/17/16 Meclizine HCl [Meclizine 25] 50 mg PO Q8HRS PRN #30 tab 08/17/16 Prednisone 5 mg PO DAILY 08/17/16
--- NOTE | 2017-07-17 23:02 | CT ---
EXAM DESCRIPTION: Head CLINICAL HISTORY: blurred vision, confusion slurred hx of aneurysm COMPARISON: 05/26/2017 TECHNIQUE: Axial CT of the head obtained from the skull apex to the skull base without contrast. FINDINGS: No acute intracranial hemorrhage identified. No mass, mass effect, shift of the midline, abnormal extra-axial fluid collection or CT evidence of acute ischemic change identified. The ventricular system and sulcal spaces are mildly enlarged compatible with mild cerebral atrophy. Scattered areas of hypodensity throughout the supratentorial white matter are nonspecific and may be related to chronic small vessel ischemic change. Postoperative change in the rightward aspect of the suprasellar cistern. The visualized paranasal sinuses and the mastoids are clear. No skull fracture identified. Visualized orbits and globes are unremarkable. Atherosclerotic calcification of the intracranial internal carotid arteries. Prior right sided craniotomy. DLP:967.47 mGy-cm IMPRESSION: 1. No acute intracranial abnormality by CT criteria. This exam was performed according to our departmental dose-optimization program, which includes automated exposure control, adjustment of the mA and/or kV according to patient size and/or use of iterative reconstruction technique. Electronically signed by: Taiwo Cazares 07/17/2017 11:01 PM [employer]
[2017-07-17 23:56] VITALS: BP 160/98; O2SAT 97
== END 2017-07-17 23:56 | disposition home or self-care (01) ==
LOC: ER 21:49
DX: I10 Essential (primary) hypertension (principal); R53.1 Weakness; H53.8 Other visual disturbances; F17.220 Nicotine dependence, chewing tobacco, uncomplicated; J44.9 Chronic obstructive pulmonary disease, unspecified; E07.9 Disorder of thyroid, unspecified; Z79.02 Long term (current) use of antithrombotics/antiplatelets; Z79.899 Other long term (current) drug therapy

== ENCOUNTER → 2018-05-01 | Outpatient (CLI) | payer MEDICARE, OTHER | LOC: GMAE 17:24 | PROVIDERS: ATTEND Family Medicine | DX: R61 Generalized hyperhidrosis (principal) ==

== ENCOUNTER 2018-05-03 14:45 | Inpatient (IN) | payer MEDICARE, OTHER ==
--- NOTE | 2018-05-03 15:03 | HP ---
SUPERVISING PHYSICIAN: Jani Tinoco M.D. CHIEF COMPLAINT: Positive blood culture with gram positive cocci. HISTORY OF PRESENT ILLNESS: Mr. Knight is a 67 year-old male patient of Dr. Jethro Shelton. He had been having a history of night sweats over the last several weeks and was seen in the clinic on the 7th of this month and had blood cultures drawn for a full workup. The blood culture did come back positive today with gram positive cocci. Dr. Shelton then requested that the patient be directly admitted with concerns for gram positive cocci bacteremia and possible endocarditis. The patient has no history of recent infection, no dental work, is not having any chest pains or shortness of breath , or any other obvious signs of infection. The only complaint he did have was that he has had some difficulty with urinating at times getting the stream started and dribbling and not fully emptying his bladder, although he is not complaining of any discomfort or dysuria. The night sweats were reported by his , but they were unable to obtain a temperature on any given time when he would have the onset of his night sweats. They noted that the sweats have now started happening throughout the day as well. He is directly admitted to the Medical/Surgical floor for initiation of treatment with vancomycin pending blood culture and further evaluation for questionable endocarditis due to gram positive bacteremia. He was admitted in stable condition. PAST MEDICAL HISTORY: 1. Brain aneurysm in October 2014 with a clip procedure. 2. Pancreatic aneurysm with coiling in 2014 requiring repair of an artery of the abdomen with open surgery in 2016 due to complications from the pancreatic coils. 3. Bilateral lower extremity blood clots. 4. Bilateral pulmonary embolisms in 2014. 5. Hypertension. 6. Diabetes mellitus type 2 with diet control. 7. Tobacco abuse, smokeless tobacco, recently started on Wellbutrin and Celexa. 8. Depression on Celexa. PAST SURGICAL HISTORY: 1. Appendectomy. 2. Cholecystectomy. 3. Brain aneurysm clipping in October 2014. 4. Vasectomy times 2. 5. Pancreatic aneurysm coiling in 2014. 6. Open repair of abdominal artery in 2014. 7. Again, pancreatic coils in 2015. 8. Placement and then removal of Yary filter. HOME MEDICATIONS: 1. Irbesartan 75 mg daily. 2. Citalopram 40 mg daily. 3. Wellbutrin 150 mg b.i.d. 4. Klonopin 0.25 mg as needed. 5. Metoprolol 50 mg b.i.d. 6. Trazodone 100 mg at bedtime. ALLERGIES: NO KNOWN DRUG ALLERGIES. FAMILY HISTORY: Noncontributory. 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 He has been for 35 years. He has 8 children total. He has used smokeless tobacco and just recently quit utilizing Wellbutrin, but has never smoked cigarettes. He does not drink alcohol and has never used illicit drugs. REVIEW OF SYSTEMS: CONSTITUTIONAL: Denies any weight loss, malaise, fevers, but is positive for night sweats. HEENT: No headaches, vision changes, sore throat, nasal congestion, ear aches. He does have difficulty hearing at times. RESPIRATORY: Denies any shortness of breath, coughing or wheezing. CARDIOVASCULAR: Denies any chest pains, palpitations or syncopal episodes or edema. GASTROINTESTINAL: Denies any nausea, vomiting, diarrhea or constipation. GENITOURINARY: Denies any dysuria, polyuria, but notes that he has had some difficulty with starting urination and dribbles, and has problems emptying his bladder which started within the last month. MUSCULOSKELETAL: No complaints. NEUROLOGIC: Denies any seizures, ataxia, dizziness, syncopal episodes, presyncopal episodes, or other neurological deficits. SKIN: Denies any rashes, sores or lesions. PHYSICAL EXAMINATION: VITAL SIGNS: Temperature 98.0, pulse 117/72, respirations 16, satting 94% on room air. GENERAL: On admission to the Medical/Surgical floor, the patient appears to be in no acute distress, resting comfortably. He is well nourished and well hydrated. He is alert and oriented times three. HEENT: Tympanic membranes are clear bilaterally. Oropharynx is pink and moist without any lesions. Dentition is in good repair. NECK: No cervical lymphadenopathy. Neck was supple, non-tender with full range of motion. No jugular venous distention. CHEST: Lungs are clear to auscultation bilaterally without any rhonchi, wheezing or rales. CARDIOVASCULAR: Regular rate and rhythm without appreciable murmurs, gallops, or rubs. ABDOMEN: Obese but soft, non-tender with positive bowel sounds. No rebound tenderness. No guarding. EXTREMITIES: Without any clubbing, cyanosis or edema. Moves all extremities ad anju. No calf pain. Pulses distally were 2+ and equal bilaterally. NEUROLOGIC: He is alert and oriented times three. Cranial nerves II-XII are grossly intact. Facial features were symmetrical. Extraocular movements are within normal limits. There is no notable nystagmus. LABORATORY: CBC showed white count 6,500, hemoglobin 13.5, hematocrit 40.4, platelet count 242,000. Differential showed to be without a left shift. Chemistries showed normal electrolytes, BUN 15, creatinine 1.04. Lactic acid was elevated at 4.3. Liver functions showed a slight elevation of AST at 48, otherwise within normal limits. LDH was 162. Urinalysis was pending. RADIOLOGY: Chest x-ray, 2 view chest, per radiology interpretation showed no radiographic evidence of cardiopulmonary disease. ASSESSMENT: 1. Bacteremia with gram positive cocci with identification and sensitivity pending, unknown etiology with concerns for endocarditis pending further workup with echocardiogram. 2. Night sweats, uncertain etiology, although questionable endocarditis. 3. Elevated lactic acid with the patient showing no other signs of any sepsis process, uncertain etiology with a normal LDH level. 4. History of bilateral lower extremity blood clots and bilateral pulmonary embolisms status post surgery. 5. Hypertension showing to be controlled. 6. Diabetes mellitus type 2, well controlled on diet therapy only. 7. History of brain aneurysm requiring clipping in 2014. 8. History of pancreatic arterial aneurysm requiring coiling in 2014 and 2015. 9. Chronic tobacco abuse in the form of smokeless tobacco, encouraged to continue cessation, currently on Wellbutrin. 10. Depression on Celexa. PLAN: The patient is going to be admitted to the Medical/Surgical floor for concerns for bacteremia and initiation of vancomycin per Pharmacy protocol, awaiting final culture results. Will collect 2 sets of blood cultures 30 minutes apart from separate sites after which time will start vancomycin and closely monitor. The plan is on Sunday to place a PICC line, awaiting an echocardiogram to further rule out endocarditis. Estimated length of stay is at least 3 days until he can get a PICC line placed and continue with further workup as an outpatient. Once that is in place, continuation of treatment with Dr. Shelton through the clinic certainly can be done as the patient is showing to be stable. I will start him on some IV fluids and recheck a lactic acid in the morning, and await a PSA and urinalysis to further rule out possible bacteremia due to bladder infection or prostatitis. Until the patient can transition to continue outpatient management, will continue to monitor and treat as needed. #[id number] [facility]
[2018-05-03] MEDS ORDERED: SODIUM CHLORIDE 0.9% 1000ML 0 ML ONE (15:27)
[2018-05-03] MEDS ORDERED: ACETAMINOPHEN 325 MG TAB PO PRN (15:32)
[2018-05-03] MEDS ORDERED: SODIUM CHLORIDE 0.9% (FLUSH) 10 ML SYG IV PRN (15:32)
[2018-05-03] MEDS ORDERED: DEXTROSE 50% 25 GM/50 ML SYG IV PRN (15:39)
[2018-05-03] MEDS ORDERED: GLUCAGON INJ 1 MG VIAL SUBCU PRN (15:39)
[2018-05-03] MEDS ORDERED: IV SET AND CAP CHANGE INJ INJ SCH (16:00)
--- NOTE | 2018-05-03 16:11 | RAD ---
EXAM DESCRIPTION: Chest,2 Views CLINICAL HISTORY: GPC bacteremia COMPARISON: March 01, 2017 FINDINGS: Two-view chest x-ray shows cardiomediastinal silhouette and pulmonary vasculature to be within normal limits. The lungs are normally aerated and clear. Costophrenic angles are sharp. Calcified pulmonary nodules are seen consistent with old granulomatous disease stable from previous. Mild disc degenerative changes of the spine are seen. IMPRESSION: No radiographic evidence of acute cardiopulmonary disease. Electronically signed by: Carmine Garcia MD 05/03/2018 4:09 PM [facility]
[2018-05-03] MEDS ORDERED: VANCOMYCIN PER PHARMACY INJ SCH (17:00)
[2018-05-03] MEDS ORDERED: VANCOMYCIN HCL IVPB ONE (17:00)
[2018-05-03] MEDS ORDERED: [UNRECOGNIZED DRUG - OTHER] IVPB ONE (17:00)
[2018-05-03] MEDS ORDERED: SODIUM CHLORIDE 0.45% 1000ML 1,000 ML IVS PRN (17:34)
[2018-05-03] MEDS ORDERED: VANCOMYCIN HCL INJ 500 MG VIAL ONE ×2 (18:12→19:23)
[2018-05-03] MEDS ORDERED: VANCOMYCIN HCL INJ 1,000 MG VIAL IVPB ONE ×2 (18:13→19:24)
[2018-05-03] MEDS ORDERED: SODIUM CHLORIDE 0.9% 500ML 500 ML ONE ×2 (18:13→19:24)
[2018-05-03] MEDS ORDERED: traZODone HCL 100 MG TAB PO ONE (19:23)
[2018-05-03] MEDS ORDERED: Wellbutrin XL 150 MG TAB PO ONE (19:25)
[2018-05-03] MEDS: ENOXAPARIN SODIUM 40 MG/0.4 ML SYG SUBCU SCH (20:40)
[2018-05-03] MEDS: traZODone HCL 50 MG TAB PO SCH (20:50)
[2018-05-03] MEDS ORDERED: SODIUM CHLORIDE 0.9% (FLUSH) 10 ML SYG IV SCH (21:00)
[2018-05-03] MEDS ORDERED: METOPROLOL TARTRATE 50 MG TAB PO SCH (21:00)
[2018-05-03] MEDS ORDERED: METOPROLOL TARTRATE 25 MG TAB ONE (21:25)
[2018-05-03] MEDS ORDERED: Wellbutrin 100 MG TAB ONE (21:32)
[2018-05-03] MEDS: BUPROPION HCL 150 MG PO SCH ×2 (21:36→21:40)
[2018-05-04] MEDS: VANCOMYCIN HCL INJ 1,750 MG in SODIUM CHLORIDE 0.9% 500ML 500 ML IVPB SCH ×2 (04:52→17:25)
[2018-05-04] MEDS: CITALOPRAM HBR 20 MG TAB PO SCH (08:57)
[2018-05-04] MEDS: VALSARTAN 80 MG TAB PO SCH (09:01)
[2018-05-04] MEDS: METOPROLOL TARTRATE 50 MG TAB PO SCH ×2 (09:02→17:25)
[2018-05-04] MEDS ORDERED: cefTRIAXone SODIUM 1 GM VIAL ONE (09:08)
[2018-05-04] MEDS ORDERED: SODIUM CHL 0.9% 50ML MIN-BAG+ 50 ML IVPB ONE (09:08)
[2018-05-04] MEDS: cefTRIAXone SODIUM 1 GM in SODIUM CHL 0.9% 50ML MIN-BAG+ 50 ML IVPB SCH (09:09)
[2018-05-04] MEDS ORDERED: SODIUM CHLORIDE 0.9% (FLUSH) 10 ML SYG IV ONE (11:37)
[2018-05-04] MEDS ORDERED: VANCOMYCIN HCL INJ 1,000 MG VIAL IVPB ONE ×2 (16:57→19:31)
[2018-05-04] MEDS ORDERED: SODIUM CHLORIDE 0.9% 500ML 500 ML ONE ×2 (16:57→19:30)
--- NOTE | 2018-05-04 20:18 | PN ---
DATE: 05/04/18 SUPERVISING PHYSICIAN: Jani Tinoco M.D. SUBJECTIVE: The patient feels fairly well today. He has had no more additional night sweats or sweats throughout the day. He has had no fevers that he knows of. He has not had any chest pain, shortness of breath. I did check on his blood cultures from the clinic. They are showing a preliminary coagulation negative Staph which is more likely Staphylococcus epidermidis, however this can also result in bacteremia, so I did start him on vancomycin and Rocephin awaiting final culture results which will be available tomorrow. He notes that he continues to have some issues with starting a urine stream. I discussed followup as an outpatient. He probably needs to be on some kind of Flomax or similar drug. He has had some slight increase in his blood pressure, although he responds well to his home medications. Will continue to monitor those. I explained to him that if the culture comes back tomorrow as a Staph epidermidis, then he could be treated hopefully with just Rocephin as an outpatient until he could have the echocardiogram completed, and then will wait for final culture results in the collected blood cultures from yesterday. OBJECTIVE: VITAL SIGNS: He remains afebrile, temperature T max was 99.2, pulse 84, blood pressure 145/78, respirations 18, satting 93% on room air. GENERAL: The patient is resting comfortably, appears to be in no acute distress. CHEST: Lungs were clear to auscultation. HEART: Regular rate and rhythm. ABDOMEN: Soft, non-tender. Positive bowel sounds. EXTREMITIES: Without any clubbing, cyanosis or edema. NEUROLOGIC: He is alert and oriented times three. LABORATORY: He had a sed rate that was normal at 10. He had a CRP that was slightly elevated at 1.3. His repeat chemistries show normal electrolytes with BUN 14, creatinine 0.4. Blood sugars are between 155 and 165. Repeat lactic acid this morning was normalized at 1.5. MICROBIOLOGY: Blood cultures are pending 2 sets that was 30 minutes apart. RADIOLOGY: No additional radiographic studies. ASSESSMENT: 1. Bacteremia with gram positive cocci that is coagulation negative Staph awaiting further identification and sensitivity, uncertain etiology with concerns for possible endocarditis pending further workup with an echocardiogram and to follow him with blood cultures as an outpatient once discharged. 2. Night sweats, uncertain etiology, with questionable endocarditis. Continue to monitor. 3. Elevated lactic acid with the patient showing no signs of sepsis, probably due to some mild dehydration with uncertain etiology, but the patient showing now a normal LDH level as well as a normalized lactic acid after fluids. 4. History of bilateral lower extremity blood clots and bilateral pulmonary emboli status post surgery. 5. Diabetes mellitus type 2, well controlled on diet therapy only. 6. History of brain aneurysm requiring clipping in 2015. 7. History of pancreatic arterial aneurysm requiring coiling in 2014 and 2016. 8. Chronic tobacco abuse in the form of smokeless tobacco, encouraged to continue cessation, currently on Wellbutrin. 9. Depression on Celexa. PLAN: I will continue to monitor the patient's blood cultures, awaiting final results of those. Anticipate those will be available tomorrow and we can discharge the patient home on proper antibiotic which more likely will be Rocephin. He will need a followup with Dr. Shelton this week with scheduled echocardiogram to further rule out endocarditis and awaiting culture results at the time and need for more antibiotic treatment and duration. Will probably not get a PICC line at this point until at least if we are going to be able to utilize Rocephin until we can find out whether or not he needs to continue with a lengthy treatment. I have saline locked him today. His lactic acid is normal and will continue to monitor until he can transition to outpatient management. #[id number] [facility]
[2018-05-04] MEDS: traZODone HCL 50 MG TAB PO SCH (20:53)
[2018-05-04] MEDS: ENOXAPARIN SODIUM 40 MG/0.4 ML SYG SUBCU SCH (20:54)
[2018-05-05] MEDS: VANCOMYCIN HCL INJ 1,750 MG in SODIUM CHLORIDE 0.9% 500ML 500 ML IVPB SCH ×2 (05:24→17:05)
[2018-05-05] MEDS ORDERED: SODIUM CHL 0.9% 50ML MIN-BAG+ 50 ML IVPB ONE (07:30)
[2018-05-05] MEDS ORDERED: cefTRIAXone SODIUM 1 GM VIAL ONE (07:31)
[2018-05-05] MEDS: VALSARTAN 80 MG TAB PO SCH (07:40)
[2018-05-05] MEDS: CITALOPRAM HBR 20 MG TAB PO SCH (07:43)
[2018-05-05] MEDS: METOPROLOL TARTRATE 50 MG TAB PO SCH ×2 (07:43→17:05)
[2018-05-05] MEDS: cefTRIAXone SODIUM 1 GM in SODIUM CHL 0.9% 50ML MIN-BAG+ 50 ML IVPB SCH (08:09)
[2018-05-05] MEDS ORDERED: SODIUM CHLORIDE 0.9% 500ML 500 ML ONE ×2 (16:39→20:02)
[2018-05-05] MEDS ORDERED: VANCOMYCIN HCL INJ 1,000 MG VIAL IVPB ONE ×2 (16:39→20:03)
--- NOTE | 2018-05-05 17:19 | PN ---
DATE: 05/05/18 SUPERVISING PHYSICIAN: Jani Tinoco M.D. SUBJECTIVE: The patient is sitting up in his bed. His is at the bedside. He has no complaints of nausea, vomiting, diarrhea, constipation, chest pain or shortness of breath. We discussed the plan of care for his discharge as well as coming to the hospital for antibiotics until he can see Dr. Shelton and get his echocardiogram scheduled as soon as possible. OBJECTIVE: VITAL SIGNS: He is afebrile, heart rate 73, blood pressure 148/88, respiratory rate 18, O2 sat 94% on room air. RESPIRATORY: Essentially clear to auscultation bilaterally. CARDIAC: Regular rate and rhythm. GASTROINTESTINAL: Abdomen is soft, nondistended, non-tender. Bowel sounds are positive. EXTREMITIES: No clubbing, cyanosis or edema. NEUROLOGIC: He is awake, alert and oriented times three. LABORATORY: Blood sugars have been running between 124 and 192. We are still awaiting sensitivities from his blood cultures. All other labs and films have been reviewed via the EMR. ASSESSMENT: 1. Bacteremia with gram positive cocci that is coagulation negative Staph awaiting further identification and sensitivity, uncertain etiology with concerns for possible endocarditis pending further workup with an echocardiogram and to follow him with blood cultures as an outpatient once discharged. 2. Night sweats, uncertain etiology, with questionable endocarditis. Continue to monitor. 3. Elevated lactic acid with the patient showing no signs of sepsis, probably due to some mild dehydration with uncertain etiology, but the patient showing now a normal LDH level as well as a normalized lactic acid after fluids. 4. History of bilateral lower extremity blood clots and bilateral pulmonary emboli status post surgery. 5. Diabetes mellitus type 2, well controlled on diet therapy only. 6. History of brain aneurysm requiring clipping in 2014. 7. History of pancreatic arterial aneurysm requiring coiling in 2014 and 2016. 8. Chronic tobacco abuse in the form of smokeless tobacco, encouraged to continue cessation, currently on Wellbutrin. 9. Depression on Celexa. PLAN: We will continue present supportive care. Continue to await sensitivities from his blood culture. It was reported last night that he fell in his room. He does wear CPAP at home, but he has no complaints of any problems and he just felt like he slipped to the floor. His sensitivities for blood culture should be back tonight or early in the morning and at that time we will discharge him to do outpatient antibiotic therapy until he can followup with Dr. Shelton and get a scheduled echocardiogram, and decisions can be made at that time for his continued antibiotic coverage. The patient agreed with the plan of care. Will continue to monitor closely and follow as needed. #[id number] [facility]
[2018-05-05] MEDS: ENOXAPARIN SODIUM 40 MG/0.4 ML SYG SUBCU SCH (21:23)
[2018-05-05] MEDS: traZODone HCL 50 MG TAB PO SCH (21:23)
[2018-05-06] MEDS: VANCOMYCIN HCL INJ 1,750 MG in SODIUM CHLORIDE 0.9% 500ML 500 ML IVPB SCH (04:40)
[2018-05-06] MEDS: METOPROLOL TARTRATE 50 MG TAB PO SCH (08:30)
[2018-05-06] MEDS ORDERED: VANCOMYCIN HCL INJ 1,000 MG VIAL IVPB ONE (08:46)
[2018-05-06] MEDS ORDERED: SODIUM CHLORIDE 0.9% 500ML 0 ML ONE (08:46)
[2018-05-06 09:54] VITALS: BP 152/98; TEMP 98.2; O2SAT 94
[2018-05-06] MEDS ORDERED: SODIUM CHL 0.9% 50ML MIN-BAG+ 50 ML IVPB ONE (09:54)
[2018-05-06] MEDS ORDERED: cefTRIAXone SODIUM 1 GM VIAL ONE (09:54)
[2018-05-06] MEDS: VALSARTAN 80 MG TAB PO SCH (09:55)
[2018-05-06] MEDS: CITALOPRAM HBR 20 MG TAB PO SCH (09:58)
[2018-05-06] MEDS: cefTRIAXone SODIUM 1 GM in SODIUM CHL 0.9% 50ML MIN-BAG+ 50 ML IVPB SCH (09:59)
--- NOTE | 2018-05-06 13:51 | DS ---
SUPERVISING PHYSICIAN: Jani Tinoco MD DISCHARGE DIAGNOSIS: 1. Bacteremia with gram positive cocci that is coagulation negative Staph although the final blood cultures had no growth and the two blood cultures drawn after the initial one have shown no growth. 2. Night sweats, uncertain etiology. Initially, there was question of endocarditis. We will continue to monitor and sent for further evaluation. 3. Elevated lactic acid with the patient showing no signs of sepsis, may be due to some dehydration. The lactic acid did normal after fluids. 4. History of bilateral lower extremity blood clots and bilateral pulmonary emboli, status post surgery. 5. Diabetes mellitus, type 2, well controlled on diet therapy only. 6. History of brain aneurysm requiring clipping in 2015. 7. History of pancreatic arterial aneurysm requiring coiling in 2014 and 2015. 8. Chronic tobacco abuse in the form of smokeless tobacco, encouraged to stop, currently on Wellbutrin. 9. Depression, presently on Celexa. HISTORY OF PRESENT ILLNESS: This is a 67-year-old male patient who was seen in Dr. Shelton's office. He had been having a history of night sweats over the last several weeks and was seen in the clinic on the 05/01/18 and had blood cultures drawn for a full workup. The initial blood culture did come back positive with gram positive cocci. Dr. Shelton then requested that the patient be directly admitted with concerns for gram positive cocci bacteremia and possible endocarditis. The patient has no history of recent infection, no dental work, is not having any chest pains or shortness of breath, or any other obvious signs of infection. The only complaint he did have was that he has had some difficulty with urinating at times getting the stream started and dribbling and not truly emptying his bladder, although he did not complaining of any discomfort or dysuria. The night sweats were reported by his , but he did not have a temperature taken during that time, but the sweats have started happening during the day. He was directly admitted to the hospital. He was initiated on vancomycin and further evaluation for questionable endocarditis due to gram positive bacteremia. He was admitted in stable condition. HOSPITAL COURSE: Two sets of blood cultures were taken 30 minutes apart from separate sites and vancomycin was started. The plan was to get the results of his sensitivities from his blood cultures and let him continue his antibiotic therapy as an outpatient and then have followup with a hand candy cutter and an echocardiogram. His vital signs remained stable. He had no temperature during his stay. His pulse rate stayed mostly in the 70s. Blood pressure ranged from 168/82 to as low as 110/67. His respiratory rate remained in the upper teens. His O2 saturations remained in the low to mid-90s. His WBCs were stable at 6.5 with hemoglobin 13.5 and hematocrit 40.1. ESR was 10. Electrolytes were basically within normal limits with the exception of his calcium slightly low at 8.3. His initial lactic acid was 4.3, but after fluids, it came down to 1.5. He did have a slightly elevated C-reactive protein of 1.3. Urinalysis was negative. Blood cultures in the hospital had no growth after 48 hours. Today, it was reported that there was no growth on his initial culture that originally had gram positive cocci. I discussed his case with Dr. Shelton, his primary care physician, and the patient will be discharged home in stable condition. He will not have any antibiotics at this time, but he will have a close followup with Dr. Shelton. DISCHARGE PLAN: The patient will be discharged home in stable condition. He is to resume his previous activity as well as his previous diet. He is to see Dr. Shelton on 05/08/18 at 4 PM for further evaluation. There are no new medications to be started at this time. He is to return to the hospital or call Dr. Shelton's office for any problems or complications. DISCHARGE MEDICATIONS: 1. Trazodone. 2. Metoprolol. 3. Clonazepam. 4. Citalopram. 5. Irbesartan. 6. Bupropion. #[id number] [facility]
== END 2018-05-06 13:40 | disposition home or self-care (01) | DRG 872 ==
LOC: MS 14:45
PROVIDERS: ADMIT Nurse Practitioner Family; ATTEND Nurse Practitioner Acute Care
DX: R78.81 Bacteremia (principal); E87.2 Acidosis; R61 Generalized hyperhidrosis; E86.0 Dehydration; E11.9 Type 2 diabetes mellitus without complications; F17.290 Nicotine dependence, other tobacco product, uncomplicated; F32.9 Major depressive disorder, single episode, unspecified; I10 Essential (primary) hypertension

== ENCOUNTER → 2018-08-19 | Outpatient (CLI) | payer MEDICARE, OTHER ==
--- NOTE | 2018-08-20 12:41 | CT ---
EXAM DESCRIPTION: Chest w/o Contrast : Computed Tomography. CLINICAL HISTORY: 67 years Male COPD COMPARISON: CT scan of the chest without IV contrast, 06/29/2017. TECHNIQUE: Spiral-axial scans at 5 x 5 mm intervals through the lungs and thorax without IV contrast. 2.5 x 5 mm lung algorithm axial reconstructions. Coronal and sagittal 2.0 Mm reconstructions. Total Exam DLP: 937.89mGy-cm. This exam was performed according to our departmental dose-optimization program which includes automated exposure control, adjustment of the mA and/or kV according to patient size and/or use of iterative reconstruction technique; to reduce radiation dose to as low as reasonably achievable (ALARA). Nodule measurements under 10 mm are given as mean value of 3 axes diameters. FINDINGS: Lungs and large airways: 4-5 mm calcified nodule with density +500, lateral superior right major fissure, on axial series 4, image 70 is stable. 2 mm partially calcified nodule associated with the fissure, abutting the medial pleura is unchanged. Second 4 mm calcified nodule with density approximately +500 associated with the right horizontal fissure. Stable. Adjacent soft tissue nodule, also approximately 4 mm dimension also in the fissure, on axial series 4, image 67, no change. Pleural parenchymal scarring inferior lateral middle lobe. Posterior dependent atelectasis bilateral posterior recesses of the lower lobes. Stable 5 mm groundglass nodule subpleural left lower lobe on image 97. Smaller solid nodule subpleural superiorly 4 mm on image 90 and stable. Stable 3 mm solid nodule associated with the left major fissure on image 63. No change. Patient has a left horizontal fissure between the lingula and the remainder of the left upper lobe which is a normal variant. 3 mm subpleural solid nodule left upper lobe on image 37 stable. No focal infiltrate, no abnormal nodules or masses. Pleural spaces: Bilateral apical pleural thickening. Multiple pleural-based and peter-fissural nodules as described. No effusion or pneumothorax bilaterally. Stable since the prior study. Mediastinum and Dimple: Evaluation limited due to lack of IV contrast. Calcified bilateral hilar nodes. No large soft tissue masses. No change since the prior study. Great vessels and Heart: Evaluation limited due to lack of IV contrast.. Again noted is atherosclerotic calcifications of the aorta, minimal involvement of the proximal brachial cephalic vessels, and coronary artery atherosclerotic calcifications. Stable since the prior study. Soft tissues of neck base, axillae, and chest wall: Evaluation limited due to lack of IV contrast.. Negative and unchanged since the prior study. Upper abdomen: No free air or free fluid in the included peritoneal space and no fatty stranding or fascial thickening. Surgical clips gallbladder fossa. Other included organs negative and stable. Osseous structures: Spondylosis cervical spine and thoracic spine no change since the prior study. 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 Bilateral glenohumeral joints are unchanged. No lytic or blastic lesions. IMPRESSION: 1. No abnormal nodules, no masses, and no focal infiltrates. Stable findings in the parenchyma and pleura and mediastinum and dimple since the prior study. Solid nodules associated with parenchyma, pleura, and fissures are unchanged. Also stable groundglass nodule left lower lobe. [facility] [employer] Best Practice guidelines: 2017 Fleischner Society guidelines for multiple solid nodules suggest optional chest CT scan 12 month follow-up. Please see below*. Also consider entering patient in low dose CT lung cancer screening study, if patient is eligible. 2. Atherosclerotic calcifications in the thorax, including aorta and coronary vessels appear stable. *2017 Fleischner Society Recommendations for Multiple Solid Lung Nodules Follow-Up base on size (average of long- and short-axis diameters). Use most suspicious nodule for followup. Nodule Size <6 mm Low-Risk Patient: No routine follow-up Nodule Size <6 mm High-Risk Patient: Optional CT at 12 months Electronically signed by: Julio Song MD 08/20/2018 12:38 PM [employer]
== END ==
LOC: CT 14:00
PROVIDERS: ATTEND Internal Medicine
DX: J44.9 Chronic obstructive pulmonary disease, unspecified (principal); G47.33 Obstructive sleep apnea (adult) (pediatric); R06.09 Other forms of dyspnea; J98.4 Other disorders of lung

== ENCOUNTER → 2018-11-27 | Outpatient (CLI) | payer MEDICARE, OTHER | LOC: RESP 10:48 | PROVIDERS: ATTEND Orthopaedic Surgery | DX: Z01.818 Encounter for other preprocedural examination (principal) ==

== ENCOUNTER → 2019-01-07 | Day surgery (SDC) | payer MEDICARE, OTHER ==
--- NOTE | 2018-12-23 12:39 | HP ---
CHIEF COMPLAINT: Knee pain. HISTORY OF PRESENT ILLNESS: Mr. Knight is a 68-year-old male with a history of severe pain in the knee. He has feelings of instability. This has been going on and getting worse over several years. He has had injections, however, has failed to gain relief. Because of his ongoing pain, he has requested operative intervention. After discussing the risks, benefits and alternatives to that, he has given informed consent for total knee arthroplasty. Today, his pain is both sharp and continuously aching. He describes the level at an 8 and 9 at most times. It is directly in the knee. PAST SURGICAL HISTORY: 1. Vasectomy. 2. Cholecystectomy. 3. Appendectomy. MEDICATIONS: 1. Losartan. 2. Wellbutrin. 3. Metoprolol. 4. Celexa. 5. Trazodone. ALLERGIES: NO KNOWN DRUG ALLERGIES. CODE STATUS: Full code. IMMUNIZATIONS: Up to date. SOCIAL HISTORY: The patient does not drink, smoke or use any illicit drugs. FAMILY HISTORY: None pertinent to today's complaint. REVIEW OF SYSTEMS: Negative except as indicated in the History of Present Illness. PHYSICAL EXAMINATION: VITAL SIGNS: Blood pressure 111/85. Pulse 82. Height 6'. Weight 285 pounds. Pain level is 8 to 9. MENTAL STATUS: The patient is awake, alert, and is able to give a good history and participate in the physical. The patient is oriented to person, place and time. SKIN: Normal tone and turgor. HEENT: Normocephalic, atraumatic. Pupils equal, round and reactive. Mucosal membranes are moist. NECK: Normal range of motion. No thyromegaly, no lymphadenopathy. CHEST: Normal respiratory excursion. CARDIAC: Regular rate and rhythm. No murmurs, rubs or gallops. MUSCULOSKELETAL: Bilateral upper extremities show full active range of motion without pain. He has intact sensation and the extremities are warm and well perfused. He has no deformity and no crepitus. Strength is 5/5. Right lower extremity shows pain with range of motion of the hip, especially during internal rotation. He has a varus deformity to the knee, crepitus throughout is range of motion and lacks about 10 degrees of extension. Flexion is to about 110 degrees. Crepitus throughout the range of motion. The left knee shows severe pain with palpation and range of motion. He has crepitus throughout his range of motion. He lacks about 10 degrees of extension. The extremity is warm and well perfused. He has varus deformity, pain with range of motion of the hip and 5/5 strength. IMAGING: X-rays show severe arthritis with varus deformity. ASSESSMENT: 1. Arthritis. PLAN: The plan at this point is total knee arthroplasty. We have discussed the risks, benefits, and alternatives to that and the patient has given informed consent. #[id number] [facility]
== END ==
LOC: AMB 05:35
PROVIDERS: ATTEND Orthopaedic Surgery
DX: M17.12 Unilateral primary osteoarthritis, left knee (principal); Z53.8 Procedure and treatment not carried out for other reasons; Z90.49 Acquired absence of other specified parts of digestive tract; Z79.899 Other long term (current) drug therapy

== ENCOUNTER → 2019-01-23 | Outpatient (CLI) | payer MEDICARE, OTHER ==
--- NOTE | 2019-01-24 09:02 | RAD ---
EXAM DESCRIPTION: Chest,2 Views CLINICAL HISTORY: PRE OP COMPARISON: 05/03/2018 TECHNIQUE: PA/lateral FINDINGS: The lungs are grossly clear. No focal consolidation, significant pneumothorax or pleural effusion. The heart is normal in size. No acute osseous abnormality. IMPRESSION: 1. No acute cardiopulmonary process. Electronically signed by: Max Wallace DO 01/24/2019 9:00 AM CDT
== END ==
LOC: LAB.O 12:53
PROVIDERS: ATTEND Orthopaedic Surgery
DX: Z01.812 Encounter for preprocedural laboratory examination (principal); M17.12 Unilateral primary osteoarthritis, left knee; M17.11 Unilateral primary osteoarthritis, right knee

== ENCOUNTER → 2019-05-07 | Outpatient (CLI) | payer MEDICARE, OTHER | LOC: GMAE 10:39 | PROVIDERS: ATTEND Family Medicine | DX: Z12.5 Encounter for screening for malignant neoplasm of prostate (principal); I10 Essential (primary) hypertension; E11.9 Type 2 diabetes mellitus without complications | CPT/HCPCS: 84443; G0103 ==

== ENCOUNTER → 2019-09-14 | Outpatient (CLI) | payer MEDICARE, OTHER | LOC: SL 18:54 | PROVIDERS: ATTEND Family Medicine | DX: G47.33 Obstructive sleep apnea (adult) (pediatric) (principal); G47.10 Hypersomnia, unspecified; G31.84 Mild cognitive impairment of uncertain or unknown etiology; R06.83 Snoring; I10 Essential (primary) hypertension ==

== ENCOUNTER → 2019-11-20 | Outpatient (CLI) | payer MEDICARE, OTHER | LOC: GMAE 17:47 | PROVIDERS: ATTEND Family Medicine | DX: R53.82 Chronic fatigue, unspecified (principal); E78.2 Mixed hyperlipidemia ==

== ENCOUNTER → 2020-04-15 | Outpatient (CLI) | payer MEDICARE, OTHER ==
--- NOTE | 2020-04-16 11:11 | US ---
EXAM DESCRIPTION: Soft Tissue,Extremity: ULTRASOUND. CLINICAL HISTORY: 69 years Male LOCALIZED SWELLING, MASS AND LUMP LEFT UPPER LIMB COMPARISON: None Available. TECHNIQUE: Transcutaneous scanning: Trent-scale and Doppler modes. FINDINGS: Scanning of the left elbow at site of palpation. Circumscribed relatively homogeneous mass in the subcutaneous tissues measuring 1.9 x 1.9 x 1.3 cm. Hypoechoic capsule with central echogenicity more than fat. Nonvascular. No fluid or calcific component. IMPRESSION: 1.3 cm well-circumscribed subcutaneous nodule, possibly fibrous or fatty content. Cannot exclude synovial or cartilage origin from joint space. No fluid or vascularity. Correlate with radiographs. Consider tissue diagnosis. Electronically signed by: Julio Song MD 04/16/2020 11:10 AM CDT
== END ==
LOC: US 13:30
PROVIDERS: ATTEND Family Medicine
DX: R22.32 Localized swelling, mass and lump, left upper limb (principal)

== ENCOUNTER → 2020-06-09 | Outpatient (CLI) | payer MEDICARE, OTHER | LOC: GMAE 10:57 | PROVIDERS: ATTEND Family Medicine | DX: Z12.5 Encounter for screening for malignant neoplasm of prostate (principal); I10 Essential (primary) hypertension; E11.9 Type 2 diabetes mellitus without complications | CPT/HCPCS: 84443; G0103 ==